=== PATIENT | male | born 1945 | race Caucasian/White ===

== ENCOUNTER → 2017-04-24 | Outpatient (CLI) | payer OTHER ==
[~2017-04-24] MED LIST: AMLO2.5T PO; FENO54TA17 PO; HYDR12.53 PO; LISI-170 PO; METF500T4 PO; SIMV5TAB5 PO
== END | disposition home or self-care (01) ==
LOC: CFH 12:44
PROVIDERS: ATTEND Internal Medicine Cardiovascular Disease
DX: I11.9 Hypertensive heart disease without heart failure (principal); I08.0 Rheumatic disorders of both mitral and aortic valves; E78.5 Hyperlipidemia, unspecified
CPT/HCPCS: 93306

== ENCOUNTER → 2019-04-12 | Outpatient (CLI) | payer MEDICARE, OTHER ==
[~2019-04-12] MED LIST changes: +AMLO10TA8 PO; -AMLO2.5T PO; +AMLO2.5T5 PO; +ATOR40TA78 PO; +CALC600T4 PO; +FENO160T PO; +HYDR12.517 PO; -HYDR12.53 PO; +HYDR25TA6 PO; +LISI40TA PO; +MELA1TAB6 PO; +METF500T17 PO; -METF500T4 PO; +MULT-297 PO; +POTA10TA31 PO; +SIMV5TAB14 PO; -SIMV5TAB5 PO; +UBID100C24 PO; +VITA1CAP PO
== END | disposition home or self-care (01) ==
LOC: CFH 12:15
PROVIDERS: ATTEND Internal Medicine Cardiovascular Disease
DX: I25.110 Atherosclerotic heart disease of native coronary artery with unstable angina pectoris (principal)
CPT/HCPCS: 78452; 93017; A9502

== ENCOUNTER 2020-04-10 12:01 | Outpatient (CLI) | payer MEDICARE | END 2020-04-10 23:59 | disposition home or self-care (01) | LOC: CFH 12:01 | PROVIDERS: ATTEND Internal Medicine Cardiovascular Disease | DX: R07.9 Chest pain, unspecified (principal); I10 Essential (primary) hypertension; I25.2 Old myocardial infarction | CPT/HCPCS: 78452; 93017; A9502 ==

== ENCOUNTER 2020-05-31 06:33 | Observation (INO) | payer MEDICARE ==
[~2020-05-31] VITALS: Ht 177.8 cm; Wt 106.0 kg
[2020-05-31] MEDS ORDERED: LACTATED RINGERS 1,000 ML IV SCH (07:19)
[2020-05-31] MEDS ORDERED: LIDOCAINE-MPF 1%, 2ML INFIL ONE (07:30)
[2020-05-31] MEDS ORDERED: CHLORHEXIDINE 15 ML UDC MM ONE (07:30)
[2020-05-31 07:53] VITALS: BP 134/75
[2020-05-31 08:01] LABS: ALANINE AMINOTRANSFERASE 24 U/L (12-78); ALBUMIN 3.7 g/dL (3.4-5.0); ANION GAP 10 mmol/L (5-15); CALCIUM 8.5 mg/dL (8.5-10.1); CHLORIDE 106 mmol/L (98-107); CREATININE 1.07 mg/dL (0.7-1.3)
[2020-05-31 08:03] LABS: ALKALINE PHOSPHATASE 89 U/L (45-117); BILIRUBIN,TOTAL 0.7 mg/dL (0.2-1.0); TOTAL PROTEIN 7.3 g/dL (6.4-8.2)
[2020-05-31] MEDS ORDERED: CHLO25TA PO (08:07)
[2020-05-31] MEDS ORDERED: CARV6.2512 PO (08:07)
[2020-05-31] MEDS ORDERED: OMEP-110 PO (08:07)
[2020-05-31] MEDS ORDERED: MIRA50TA PO (08:07)
[2020-05-31] MEDS ORDERED: POTA20PA31 PO (08:07)
[2020-05-31] MEDS ORDERED: NITR0.4T28 SL (08:07)
[2020-05-31] MEDS ORDERED: FENTANYL PF 100 MCG/2ML ONE ×3 (08:24→09:59)
[2020-05-31] MEDS ORDERED: METOPROLOL 1 MG/ML, 5ML ONE (08:27)
[2020-05-31] MEDS ORDERED: KETOROLAC 30 MG/1 ML IV PRN (09:00)
[2020-05-31] MEDS ORDERED: ACETAMINOPHEN 325 MG TABLET PO PRN (09:00)
[2020-05-31] MEDS ORDERED: HYDROmorphone 2 MG/ML, 1ML IVPush PRN (09:00)
[2020-05-31] MEDS ORDERED: PROMETHAZINE 25 MG/ML, 1ML IV PRN (09:00)
[2020-05-31] MEDS ORDERED: MEPERIDINE/PF 25MG/0.5ML IVPush PRN (09:00)
[2020-05-31] MEDS ORDERED: hydrALAzine 20 MG/ML, 1ML IV PRN (09:00)
[2020-05-31] MEDS ORDERED: LABETALOL 5MG/ML, 20ML IV PRN (09:00)
[2020-05-31] MEDS ORDERED: ALBUTEROL SULFATE 2.5 MG/3 ML NPPB PRN (09:00)
[2020-05-31] MEDS ORDERED: ACETAMINOPHEN 650 MG/20.3 ML UDC ONE (09:14)
[2020-05-31] MEDS ORDERED: OXYcodone 5 MG/5 ML ORAL.SOL UDC ONE ×2 (09:15→10:00)
[2020-05-31] MEDS ORDERED: CEFAZOLIN 1,000 MG ONE (09:17)
[2020-05-31] MEDS ORDERED: SUCCINYLCHOLINE 20 MG/ML, 10ML ONE (09:17)
[2020-05-31] MEDS ORDERED: ROCURONIUM 10MG/ML,5ML ONE (09:17)
[2020-05-31] MEDS: FENTANYL PF 100 MCG/2ML IV PRN ×5 (09:17→10:03)
[2020-05-31] MEDS ORDERED: DEXAMETHASONE 4 MG/ML, 1ML ONE (09:17)
[2020-05-31] MEDS ORDERED: NEOSTIGMINE 1 MG/ML, 10ML ONE (09:17)
[2020-05-31] MEDS ORDERED: ONDANSETRON 2MG/ML, 2ML ONE (09:17)
[2020-05-31] MEDS ORDERED: GLYCOPYRROLATE 0.2MG/1ML, 5ML ONE (09:17)
[2020-05-31] MEDS ORDERED: PROPOFOL 10 MG/ML, 20ML ONE (09:17)
[2020-05-31] MEDS: OXYcodone 5 MG/5 ML ORAL.SOL UDC PO PRN ×2 (09:18→10:02)
[2020-05-31] MEDS ORDERED: PHENAZOPYRIDINE 200 MG TABLET ONE (09:23)
[2020-05-31] MEDS ORDERED: OXYcodone/APAP 5/325MG TABLET PO PRN ×2 (09:30→11:00)
[2020-05-31] MEDS ORDERED: ONDANSETRON 2MG/ML, 2ML IV PRN (11:00)
[2020-05-31] MEDS ORDERED: NITROGLYCERIN 0.4 MG BOTTLE (25 TABS) SL PRN (16:30)
[2020-05-31] MEDS: metFORMIN 500 MG TABLET PO SCH (16:42)
[2020-05-31 20:28] VITALS: BP 128/69
[2020-05-31] MEDS ORDERED: ATORVASTATIN 40 MG TABLET PO SCH (21:00)
[2020-06-01 01:26] VITALS: BP 136/68
[2020-06-01 04:02] VITALS: BP 138/78
[2020-06-01] MEDS ORDERED: OMEPRAZOLE 20 MG CAPSULE.DR PO SCH (06:00)
[2020-06-01 07:33] VITALS: BP 138/69
[2020-06-01] MEDS: metFORMIN 500 MG TABLET PO SCH (08:17)
[2020-06-01] MEDS ORDERED: MULTIVITS,STRESS FORMULA 1 TABLET PO SCH ×2 (09:00)
[2020-06-01] MEDS ORDERED: MULTIVITAMINS/MINERALS TABLET PO SCH (09:00)
[2020-06-01] MEDS ORDERED: MIRABEGRON 50 MG HOMEMEDPO SCH (09:00)
[2020-06-01] MEDS ORDERED: AMLODIPINE 10 MG TAB PO SCH (09:00)
[2020-06-01] MEDS ORDERED: POTASSIUM CHLORIDE 10 MEQ TABLET.ER PO SCH (09:00)
[2020-06-01] MEDS ORDERED: CHLORTHALIDONE 25 MG TABLET PO SCH (09:00)
[2020-06-01] MEDS ORDERED: CARVEDILOL 6.25 MG TABLET PO SCH (09:00)
[2020-06-01] MEDS ORDERED: LISINOPRIL 40 MG TABLET PO SCH (09:00)
[2020-06-01] MEDS ORDERED: HYDR-3240 PO (09:44)
[2020-06-01] MEDS ORDERED: OXYC-302 PO (09:45)
[2020-06-01] MEDS ORDERED: PHEN-418 PO (09:46)
[2020-06-01] MEDS ORDERED: SULF1TAB24 PO (09:47)
== END 2020-06-01 10:00 | disposition home or self-care (01) ==
LOC: OUT 06:33 → ORIP 11:07 → 4NE 15:50 → DCLOUNGE 06-01 09:47
PROVIDERS: ADMIT Urology; ATTEND Urology
DX: Z03.818 Encounter for observation for suspected exposure to other biological agents ruled out (principal); N35.919 Unspecified urethral stricture, male, unspecified site; N32.81 Overactive bladder; I10 Essential (primary) hypertension; E11.9 Type 2 diabetes mellitus without complications; E78.5 Hyperlipidemia, unspecified; Z86.79 Personal history of other diseases of the circulatory system; Z87.440 Personal history of urinary (tract) infections; Z85.46 Personal history of malignant neoplasm of prostate; Z79.899 Other long term (current) drug therapy; Z87.891 Personal history of nicotine dependence; Z87.448 Personal history of other diseases of urinary system; Z79.84 Long term (current) use of oral hypoglycemic drugs
CPT/HCPCS: 52276; 80053; 82962; 87635; 93005; G0378; J0690; J1100; J1885; J2405; J2704; J3010; J7120; J2710; J0330